=== PATIENT | female | born 1985 | race African-American/Black ===

== ENCOUNTER 2021-07-21 04:33 | Day surgery (SDC) | payer BC ==
[2021-07-17 15:31] VITALS: BMI 27.4
[~2021-07-21 04:33] MED LIST: CLINDAMYCIN PHOSPHATE 900 MG/6 ML VIAL IVPB ONE
[2021-07-21] MEDS ORDERED: CLINDAMYCIN 900 MG PREMIX IVPB 900 MG/50 ML BAG IVPB ONE (11:00)
[2021-07-21] MEDS ORDERED: SUCCINYLCHOLINE CHLORIDE 200 MG/10 ML SYRINGE ONE (11:11)
[2021-07-21] MEDS ORDERED: PROPOFOL 20 ML ONE ×2 (11:11)
[2021-07-21] MEDS ORDERED: INDOMETHACIN 50 MG CAPSULE PO ONE (12:42)
[2021-07-21] MEDS ORDERED: ONDANSETRON 4 MG/2 ML VIAL IVPUSH PRN (13:15)
[2021-07-21 17:05] VITALS: TEMP 97.8
[2021-07-21 17:08] VITALS: BP 124/82; PULSE 78
== END 2021-07-21 15:50 | disposition home or self-care (01) ==
LOC: JASU-SURG 04:33
PROVIDERS: ATTEND Obstetrics & Gynecology Maternal & Fetal Medicine
PROC: 0UVC7ZZ Restriction of Cervix, Via Natural or Artificial Opening (ICD-10-PCS; principal; 2021-07-21 11:00)
DX: O34.31 Maternal care for cervical incompetence, first trimester (principal); Z3A.11 11 weeks gestation of pregnancy
CPT/HCPCS: 94760

== ENCOUNTER 2022-01-11 01:10 | Inpatient (IN) | payer BC ==
[2022-01-11 02:50] LABS: EOS % 2.8 % (0-4.5); HEMATOCRIT 38.4 % (32.4-45.2); HEMOGLOBIN 13.3 GM/dL (10.7-15.3); LYMPH % 30.2 % (8-40); MCH 29.4 pg (25.7-33.7); MCHC 34.5 g/dl (32.0-36.0); MEAN CELL VOLUME 85.1 fl (80-96); MEAN PLT VOLUME 9.1 fl (7.5-11.1); MONO % 6.9 % (3.8-10.2); NEUT % 59.1 % (42.8-82.8); PLATELET COUNT 174 10^3/uL (134-434); RBC 4.52 M/mm3 (3.60-5.2); RDW 14.1 % (11.6-15.6); WHITE BLOOD COUNT 5.8 K/mm3 (4.0-10.0)
[2022-01-11 02:57] LABS: INR 1.02 (0.83-1.09); PROTHROMBIN TIME (PATIENT) 11.7 SEC (9.7-13.0)
[2022-01-11 02:59] LABS: ACTIVATED PTT 26.8 SECONDS (25.2-36.5)
[2022-01-11 03:07] VITALS: BMI 30.5
[2022-01-11 03:11] LABS: CALCIUM 9.3 mg/dL (8.5-10.1)
[2022-01-11 03:12] LABS: ALBUMIN 2.9 g/dl (3.4-5.0); BLOOD UREA NITROGEN 4.8 mg/dL (7-18)
[2022-01-11 03:15] LABS: CREATININE 0.5 mg/dL (0.55-1.3)
[2022-01-11] MEDS ORDERED: SODIUM CHLORIDE 1,000 ML IV SCH (03:15)
[2022-01-11 03:17] LABS: BILIRUBIN,TOTAL 0.4 mg/dL (0.2-1); TOT PROT 6.8 g/dl (6.4-8.2)
[2022-01-11 04:08] LABS: HIV INTERPRETATION NEGATIVE (NEGATIVE)
[2022-01-11] MEDS: LABETALOL HCL 200 MG TABLET (FP) PO SCH ×2 (09:34→21:57)
[2022-01-11] MEDS: HEPARIN NA (PORCINE) 5,000 UNITS/ML 1ML VIAL SQ SCH ×2 (09:36→21:57)
[2022-01-12] MEDS ORDERED: morphine SULFATE/PF 1 MG/2 ML (2cc Syringe - QUVA) ONE (08:31)
[2022-01-12] MEDS ORDERED: ceFAZolin SODIUM 1 GM VIAL ONE (08:35)
[2022-01-12] MEDS ORDERED: KETOROLAC TROMETHAMINE 30 MG/1 ML VIAL ONE (09:25)
[2022-01-12] MEDS ORDERED: DEXAMETHASONE SOD PHOSPHATE 4 MG/1 ML VIAL ONE (09:25)
[2022-01-12] MEDS ORDERED: ONDANSETRON 4 MG/2 ML VIAL ONE (09:25)
[2022-01-12 09:52] LABS: CORD BASE EXCESS 0.9 mmol/L (0-2); CORD HCO3 26.9 mmHg (20-29); CORD PCO2 48.2 mmHg (30-78); CORD pH 7.365 (7.14-7.44)
[2022-01-12 09:54] LABS: CORD HCO3 28.1 mmHg (20-29); CORD PCO2 57.8 mmHg (30-78); CORD pH 7.305 (7.14-7.44)
[2022-01-12] MEDS ORDERED: ePHEDrine SULFATE 50 MG/1 ML AMPULE ONE (10:00)
[2022-01-12] MEDS ORDERED: OXYTOCIN 10 UNITS/ML VIAL ONE (10:01)
[2022-01-12] MEDS: LABETALOL HCL 200 MG TABLET (FP) PO SCH ×2 (10:18→21:45)
[2022-01-12] MEDS: HEPARIN NA (PORCINE) 5,000 UNITS/ML 1ML VIAL SQ SCH ×2 (10:18→21:45)
[2022-01-12] MEDS ORDERED: IBUPROFEN 600 MG TABLET (FP) PO PRN (10:46)
[2022-01-12] MEDS ORDERED: CITRIC ACID/SODIUM CITRATE 30 ML UNIT-DOSE CUP PO ONE (10:46)
[2022-01-12] MEDS ORDERED: ACETAMINOPHEN 325 MG TABLET (FP) PO PRN ×2 (10:46→10:56)
[2022-01-12] MEDS ORDERED: morphine SULFATE/PF 1 MG/2 ML (2cc Syringe - QUVA) SPIN ONE (10:56)
[2022-01-12] MEDS ORDERED: ONDANSETRON 4 MG/2 ML VIAL IVPUSH PRN (10:56)
[2022-01-12] MEDS: OXYTOCIN 20 UNITS in 0.9% NS 20 UNIT/1,000 ML INFUS.BAG IV SCH ×2 (12:00→19:51)
[2022-01-12] MEDS ORDERED: OXYTOCIN 20 UNITS in 0.9% NS 20 UNIT/1,000 ML INFUS.BAG IV ONE (12:02)
[2022-01-12] MEDS ORDERED: DIPHTH,PERTUSS(ACELL),TET 0.5 ML DISP.SYRIN IM ONE (12:41)
[2022-01-12] MEDS ORDERED: ROCURONIUM BROMIDE 50 MG/5 ML SYRINGE ONE (15:47)
[2022-01-12] MEDS: SIMETHICONE 80 MG TAB.CHEW (FP) PO PRN (19:28)
[2022-01-12] MEDS: IBUPROFEN 600 MG TABLET (FP) PO PRN (19:28)
[2022-01-12] MEDS: FERROUS SO4 325 MG TABLET (FP) PO SCH (21:45)
[2022-01-13] MEDS: SIMETHICONE 80 MG TAB.CHEW (FP) PO PRN ×4 (01:27→21:19)
[2022-01-13] MEDS: IBUPROFEN 600 MG TABLET (FP) PO PRN ×4 (01:27→17:47)
[2022-01-13 08:40] LABS: BASO % 0.6 % (0-2.0); EOS % 1.2 % (0-4.5); HEMATOCRIT 33.2 % (32.4-45.2); LYMPH % 19.7 % (8-40); MCH 28.6 pg (25.7-33.7); MCHC 33.1 g/dl (32.0-36.0); MEAN CELL VOLUME 86.3 fl (80-96); MEAN PLT VOLUME 9.5 fl (7.5-11.1); MONO % 7.6 % (3.8-10.2); NEUT % 70.9 % (42.8-82.8); PLATELET COUNT 171 10^3/uL (134-434); RBC 3.85 M/mm3 (3.60-5.2); RDW 14.2 % (11.6-15.6)
[2022-01-13] MEDS: PRENATAL VITAMINS W/ FOLIC ACID TABLET (FP) PO SCH (09:47)
[2022-01-13] MEDS: FERROUS SO4 325 MG TABLET (FP) PO SCH ×2 (09:47→21:17)
[2022-01-13] MEDS: HEPARIN NA (PORCINE) 5,000 UNITS/ML 1ML VIAL SQ SCH ×2 (09:47→21:18)
[2022-01-13] MEDS: LABETALOL HCL 200 MG TABLET (FP) PO SCH ×3 (09:47→22:59)
[2022-01-13] MEDS ORDERED: DIPHTH,PERTUSS(ACELL),TET 0.5 ML DISP.SYRIN IM ONE (10:00)
[2022-01-13] MEDS ORDERED: FLU VACC QS2022-23(6MOS UP)/PF 60 MCG/0.5 ML SYRINGE IM ONE (12:00)
[2022-01-13] MEDS: oxyCODONE HCL 5 MG TABLET PO PRN (21:18)
[2022-01-14] MEDS: oxyCODONE HCL 5 MG TABLET PO PRN ×4 (05:15→20:45)
[2022-01-14] MEDS: SIMETHICONE 80 MG TAB.CHEW (FP) PO PRN ×3 (05:15→20:45)
[2022-01-14] MEDS: LABETALOL HCL 200 MG TABLET (FP) PO SCH ×2 (09:39→22:03)
[2022-01-14] MEDS: PRENATAL VITAMINS W/ FOLIC ACID TABLET (FP) PO SCH (09:39)
[2022-01-14] MEDS: FERROUS SO4 325 MG TABLET (FP) PO SCH ×2 (09:39→22:03)
[2022-01-14] MEDS: HEPARIN NA (PORCINE) 5,000 UNITS/ML 1ML VIAL SQ SCH ×2 (09:45→22:04)
[2022-01-14] MEDS: IBUPROFEN 600 MG TABLET (FP) PO PRN ×2 (18:10→22:03)
[2022-01-15] MEDS: oxyCODONE HCL 5 MG TABLET PO PRN ×3 (03:13→12:37)
[2022-01-15] MEDS: SIMETHICONE 80 MG TAB.CHEW (FP) PO PRN ×3 (03:13→12:37)
[2022-01-15 07:47] LABS: BASO % 0.7 % (0-2.0); EOS % 3.9 % (0-4.5); HEMATOCRIT 28.7 % (32.4-45.2); HEMOGLOBIN 9.7 GM/dL (10.7-15.3); MCHC 33.8 g/dl (32.0-36.0); MEAN CELL VOLUME 85.8 fl (80-96); MONO % 6.9 % (3.8-10.2); NEUT % 58.5 % (42.8-82.8); PLATELET COUNT 194 10^3/uL (134-434); RBC 3.35 M/mm3 (3.60-5.2); RDW 14.3 % (11.6-15.6); WHITE BLOOD COUNT 6.3 K/mm3 (4.0-10.0)
[2022-01-15] MEDS ORDERED: DOCUSATE SODIUM 100 MG CAPSULE (FP) PO PRN (08:35)
[2022-01-15] MEDS ORDERED: ASCORBIC ACID 500 MG TABLET (FP) PO SCH (10:00)
[2022-01-15] MEDS ORDERED: PATIENT'S OWN MEDICATION (NON-FORMULARY) (Prenatal Vit No.124/Iron/Folic [Prenatal Vitamin PO SCH (10:00)
[2022-01-15] MEDS ORDERED: LABETALOL HCL PO SCH (10:00)
[2022-01-15] MEDS: HEPARIN NA (PORCINE) 5,000 UNITS/ML 1ML VIAL SQ SCH (10:58)
[2022-01-15] MEDS: PRENATAL VITAMINS W/ FOLIC ACID TABLET (FP) PO SCH (10:58)
[2022-01-15] MEDS: LABETALOL HCL 200 MG TABLET (FP) PO SCH (11:36)
[2022-01-15 12:24] VITALS: BP 141/90; PULSE 86; RESP 17; TEMP 97.8
[2022-01-15] MEDS: IBUPROFEN 600 MG TABLET (FP) PO PRN (14:44)
[2022-01-15] MEDS ORDERED: FERROUS SO4 325 MG TABLET (FP) PO SCH (17:30)
== END 2022-01-15 14:50 | disposition home or self-care (01) | DRG 786 ==
LOC: JLDR 01:10 → J3W 08:15 → JLDR 01-12 06:34 → J3W 01-12 12:30
PROVIDERS: ADMIT Obstetrics & Gynecology Maternal & Fetal Medicine; ATTEND Obstetrics & Gynecology Maternal & Fetal Medicine
PROC: 10D00Z1 Extraction of Products of Conception, Low, Open Approach (ICD-10-PCS; principal; 2022-01-12)
PROC: 0UCC0ZZ Extirpation of Matter from Cervix, Open Approach (ICD-10-PCS; 2022-01-12)
DX: O14.94 Unspecified pre-eclampsia, complicating childbirth (principal); O34.33 Maternal care for cervical incompetence, third trimester; O60.14X0 Preterm labor third trimester with preterm delivery third trimester, not applicable or unspecified; N73.6 Female pelvic peritoneal adhesions (postinfective); Z87.59 Personal history of other complications of pregnancy, childbirth and the puerperium; Z3A.36 36 weeks gestation of pregnancy; Z37.0 Single live birth
CPT/HCPCS: 36415; 36600; 80053; 82803; 85025; 85610; 85730; 86762; 86780; 86850; 86900; 86901; 87340; 87389; 88307-TC; 90715; C9803-CS; G0008; J1644; Q2036; U0003; U0005